=== PATIENT | female | born 1935 | race African-American/Black ===

== ENCOUNTER 2017-07-19 09:26 | Outpatient (CLI) | payer OTHER ==
[~2017-07-19 09:26] MED LIST: AVAPRO75 MG PO; PREVACID30 MG PO
== END 2017-07-19 09:30 | disposition home or self-care (01) ==
LOC: NUCLEAR 09:26
DX: I27.0 Primary pulmonary hypertension (principal); I50.22 Chronic systolic (congestive) heart failure; I50.20 Unspecified systolic (congestive) heart failure

== ENCOUNTER 2017-07-19 11:59 | Outpatient (CLI) | payer OTHER | END 2017-07-19 15:00 | disposition home or self-care (01) | LOC: RAD 11:59 | DX: J44.1 Chronic obstructive pulmonary disease with (acute) exacerbation (principal) ==